=== PATIENT | male | born 1950 | race Caucasian/White ===

== ENCOUNTER → 2018-08-22 | Emergency (ER) | payer OTHER ==
[~2018-08-22] MED LIST: ASPIRIN 81 MG CHEWABLE TABLETS ONE; ASPIRIN 81 MG CHEWABLE TABLETS PO ONE; ASPIRIN COATED 81 MG TABLET.EC ONE; ASPIRIN COATED 81 MG TABLET.EC PO SCH; CARVEDILOL 12.5 MG TABLET (FP) ONE; CARVEDILOL 12.5 MG TABLET (FP) PO ONE; CLOPIDOGREL BISULFATE 75 MG TABLET (FP) ONE; CLOPIDOGREL BISULFATE 75 MG TABLET (FP) PO ONE; RAMIPRIL 5 MG CAPSULE (FP) ONE; RAMIPRIL 5 MG CAPSULE (FP) PO ONE
--- NOTE | 2018-08-22 18:35 | PDOC ---
Rapid Medical Evaluation Time Seen by Provider: 08/22/18 18:27 Medical Evaluation: Allergies Allergy/AdvReac Type Severity Reaction Status Date / Time No Known Allergies Allergy Verified 12/03/15 05:09 08/22/18 18:27 Psychiatrist: Dr. Caldwell [phone]; Yogi Cline Spoke with Dr. Caldwell, pt psychiatrist. Has been missing appointments for 4 months, and drinking. Has rx for Xanax 1mg. took approximately 45 pills with at least 5-8 beers the last two days. Also took oxycodone. Is concerned that he may have withdrawal symptoms. Admitted suicidal thoughts, no clear plan, but did take a lot of pills. Possible suicide attempt. States he may be pain seeking. Pt reports family issues. Exam: depressed affect, poor eye contact Orders: Labs, Iv Pt to proceed to ED for further evaluation Discharge Disposition - Diagnosis Suicidal thoughts, Overdose - Referrals - Patient Instructions - Post Discharge Activity
[2018-08-22 18:37] VITALS: BMI 27.3
[2018-08-22 19:11] LABS: BASO % 0.4 % (0-2.0); EOS % 3.7 % (0-4.5); HEMATOCRIT 46.7 % (35.4-49); HEMOGLOBIN 15.8 GM/dL (11.7-16.9); LYMPH % 21.3 % (8-40); MCH 31.4 pg (25.7-33.7); MCHC 33.8 g/dl (32.0-35.9); MEAN PLT VOLUME 7.6 fl (7.5-11.1); MONO % 10.7 % (3.8-10.2); NEUT % 63.9 % (42.8-82.8); PLATELET COUNT 268 K/MM3 (134-434); RBC 5.02 M/mm3 (4.00-5.60); RDW 13.4 % (11.9-15.9); WHITE BLOOD COUNT 6.6 K/mm3 (4.0-10.0)
[2018-08-22 19:50] LABS: ALBUMIN 3.8 g/dl (3.4-5.0); ALK PHOS 73 U/L (45-117); ANION GAP 6 MMOL/L (8-16); BILIRUBIN,TOTAL 0.5 mg/dL (0.2-1); BLOOD UREA NITROGEN 9 mg/dL (7-18); CALCIUM 9.9 mg/dL (8.5-10.1); CHLORIDE 109 mmol/L (98-107); CO2 22 mmol/L (21-32); CREATININE 0.6 mg/dL (0.55-1.3); GLUCOSE,RANDOM 91 mg/dL (74-106); SGPT/ALT 23 U/L (13-61); SODIUM 137 mmol/L (136-145); TOT PROT 7.3 g/dl (6.4-8.2)
[2018-08-22 19:51] LABS: POTASSIUM 4.2 mmol/L (3.5-5.1); SGOT/AST 17 U/L (15-37)
--- NOTE | 2018-08-22 20:34 | PDOC ---
History of Present Illness - General Chief Complaint: Overdose Stated Complaint: SUICIDAL Time Seen by Provider: 08/22/18 18:27 - History of Present Illness Initial Comments: 08/22/18 21:22 67-year-old male with past medical history significant for MD, hepatitis C, hypertension, cardiac stents presents with daughter to the emergency Department after allegedly injecting 45 pills of xanax 1mg yesterday and 6 of those today. Patient stable sitting in bed comfortably. 08/22/18 22:15 08/22/18 22:18 Patient admits to suicidal ideation. Past History - Past Medical History Allergies/Adverse Reactions: Allergies Allergy/AdvReac Type Severity Reaction Status Date / Time No Known Allergies Allergy Verified 08/22/18 18:30 Home Medications: Ambulatory Orders Alprazolam [Xanax -] 0.5 mg PO DAILY 07/02/12 Aspirin [ASA -] 81 mg PO DAILY 07/02/12 Carvedilol [Coreg] 12.5 mg PO BID 07/02/12 Clopidogrel Bisulfate [Plavix -] 75 mg PO DAILY 07/02/12 Ramipril 5 mg PO DAILY 07/02/12 Amoxicillin - [Amoxicillin 500mg Capsule -] 500 mg PO TID #21 capsule 12/03/15 Oxycodone HCl/Acetaminophen [Percocet 5/325 -] 1 - 2 tab PO Q4H #20 tablet 12/03 Cardiac Disorders: Yes (MD; cardiac stents) COPD: No GI Disorders: Yes (hiatal hernia) HTN: Yes Hypercholesterolemia: Yes Liver Disease: Yes (HEPATITIS C) - Surgical History Cardiac Surgery: Yes (STENTS) Orthopedic Surgery: Yes - Immunization History Immunization Up to Date: Yes - Suicide/Smoking/Psychosocial Hx Smoking Status: No Smoking History: Never smoked Have you smoked in the past 12 months: No Number of Cigarettes Smoked Daily: 0 If you are a former smoker, when did you quit?: 1 year ago Hx Alcohol Use: Yes Drug/Substance Use Hx: No Substance Use Type: Alcohol Hx Substance Use Treatment: No Review of Systems - Review of Systems Able to Perform ROS?: Yes Is the patient limited Wolof proficient: No Constitutional: No: Symptoms Reported HEENTM: No: Symptoms Reported Respiratory: No: Symptoms reported Cardiac (ROS): No: Symptoms Reported ABD/GI: No: Symptoms Reported : No: Symptoms Reported Musculoskeletal: No: Symptoms Reported Integumentary: No: Symptoms Reported Neurological: No: Symptoms reported *Physical Exam - Vital Signs Last Vital Signs Temp Pulse Resp BP Pulse Ox 97.6 F 87 18 148/90 95 08/22/18 18:31 08/22/18 18:31 1018 18:31 08/22/18 18:31 08/22/18 18:54 - Physical Exam General Appearance: Yes: Nourished, Appropriately Dressed. No: Apparent Distress HEENT: positive: EOMI, DEMI, Normal ENT Inspection Respiratory/Chest: positive: Lungs Clear, Normal Breath Sounds. negative: Chest Tender, Respiratory Distress Cardiovascular: positive: Regular Rhythm, Regular Rate, S1, S2 Gastrointestinal/Abdominal: positive: Normal Bowel Sounds, Flat, Soft. negative : Tender Musculoskeletal: positive: Normal Inspection. negative: CVA Tenderness Neurologic: positive: Fully Oriented, Alert, Normal Mood/Affect, Normal Response , Motor Strength /5 ED Treatment Course - LABORATORY CBC & Chemistry Diagram: 08/22/18 19:00 08/22/18 19:00 - ADDITIONAL ORDERS Additional order review: Laboratory Results 08/22/18 08/22/18 19:00 19:00 Sodium 137 Potassium 4.2 Chloride 109 H Carbon Dioxide 22 Anion Gap 6 L BUN 9 Creatinine 0.6 Creat Clearance w eGFR > 60 Random Glucose 91 Calcium 9.9 Total Bilirubin 0.5 AST 17 ALT 23 Alkaline Phosphatase 73 Total Protein 7.3 Albumin 3.8 Acetaminophen < 2.0 L Alcohol, Quantitative < 3.0 08/22/18 19:00 RBC 5.02 MCV 93.0 MCHC 33.8 RDW 13.4 MPV 7.6 Neutrophils % 63.9 D Lymphocytes % 21.3 D Monocytes % 10.7 H Eosinophils % 3.7 Basophils % 0.4 Medical Decision Making - Medical Decision Making 08/22/18 22:19 Will get EKG, basic labs, toxic panel. Patient on 1:1 watch. Will consult with psychiatry. 08/23/18 01:[address] Fraire. no reply, Patient signed out to Dr. Jamison. *DC/Admit/Observation/Transfer Diagnosis at time of Disposition: Suicidal thoughts, Overdose - Referrals Referrals: Maynor Dunlap MD [Primary Care Provider] - - Patient Instructions - Post Discharge Activity
--- NOTE | 2018-08-22 22:32 | PDOC ---
Attending Attestation - Resident Resident Name: Alec Motley - HPI HPI: 08/23/18 06:48 Pt presents to the ED complaining of overdose of xanax and ETOH yesterday. FAmily called EMS today because he was very sleepy yesterday. patient's primary psychiatrist spoke with [facility] practioner and expressed concern that the patient was abusing his medications and that he has not had an appointment for 4 months. Patient reports to me that he took a medication OD in a deliberate attempt to self harm, and admits to depression and suicidal ideation. - Physicial Exam PE: 08/23/18 06:59 agree with resident exam. Patient is alert and oriented and in no distress. Lungs are clear, heart regular rate and rhythm, abdomen soft, non tender and non distended. - Medical Decision Making 08/22/18 22:31 Pt presents to the ED complaining of overdose of xanax. ALert and oriented and in no distress on exam. endorses SI. Labs are within normal limits. Will hold for psych eval in the morning. 08/23/18 07:04
--- NOTE | 2018-08-23 01:10 | PDOC ---
*Physical Exam - Vital Signs Last Vital Signs Temp Pulse Resp BP Pulse Ox 97.6 F 87 18 148/90 95 08/22/18 18:31 08/22/18 18:31 08/22/18 18:31 08/22/18 18:31 08/22/18 18:54 ED Treatment Course - LABORATORY CBC & Chemistry Diagram: 08/22/18 19:00 08/22/18 19:00 - ADDITIONAL ORDERS Additional order review: Laboratory Results 08/22/18 08/22/18 19:00 19:00 Sodium 137 Potassium 4.2 Chloride 109 H Carbon Dioxide 22 Anion Gap 6 L BUN 9 Creatinine 0.6 Creat Clearance w eGFR > 60 Random Glucose 91 Calcium 9.9 Total Bilirubin 0.5 AST 17 ALT 23 Alkaline Phosphatase 73 Total Protein 7.3 Albumin 3.8 Acetaminophen < 2.0 L Alcohol, Quantitative < 3.0 08/22/18 19:00 RBC 5.02 MCV 93.0 MCHC 33.8 RDW 13.4 MPV 7.6 Neutrophils % 63.9 D Lymphocytes % 21.3 D Monocytes % 10.7 H Eosinophils % 3.7 Basophils % 0.4 Medical Decision Making - Medical Decision Making 08/23/18 01:09 received sign out from Dr. Motley Patient on 1:1 watch. pt will be seen by psych in the AM 08/23/18 07:[address] Mars Patient on 1:1 watch. pt will be seen by psych in the AM pt ED obs *DC/Admit/Observation/Transfer Diagnosis at time of Disposition: Suicidal thoughts, Overdose - Referrals Referrals: Maynor Dunlap MD [Primary Care Provider] - - Patient Instructions - Post Discharge Activity
[2018-08-23 06:13] LABS: URINE APPEARANCE CLEAR; URINE BILIRUBIN NEGATIVE (<2.0 mg/dL); URINE COLOR YELLOW; URINE GLUCOSE (UA) NEGATIVE (NEGATIVE); URINE KETONE NEGATIVE (NEGATIVE); URINE LEUK ESTERASE NEGATIVE (NEGATIVE); URINE NITRITE NEGATIVE (NEGATIVE); URINE PROTEIN NEGATIVE (NEGATIVE); URINE UROBILINOGEN NEGATIVE mg/dL (0.2-1.0)
[2018-08-23 06:42] LABS: URINE MUCUS RARE
--- NOTE | 2018-08-23 07:05 | PDOC ---
*Physical Exam - Vital Signs Last Vital Signs Temp Pulse Resp BP Pulse Ox 98.1 F 83 18 147/98 99 08/23/18 05:50 08/23/18 05:50 08/23/18 05:50 08/23/18 05:50 08/23/18 07:21 <Luisana Sandhu - Last Filed: 08/23/18 10:41> - Vital Signs Last Vital Signs Temp Pulse Resp BP Pulse Ox 98.1 F 83 18 147/98 100 08/23/18 05:50 08/23/18 05:50 08/23/18 05:50 08/23/18 05:50 08/23/18 05:50 <Luisana Mars - Last Filed: 08/23/18 20:52> ED Treatment Course - LABORATORY CBC & Chemistry Diagram: 08/22/18 19:00 08/22/18 19:00 - ADDITIONAL ORDERS Additional order review: Laboratory Results 08/23/18 08/23/18 06:00 05:44 Urine Color Yellow Urine Appearance Clear Urine pH 5.0 Ur Specific [place] 1.013 Urine Protein Negative Urine Glucose (UA) Negative Urine Ketones Negative Urine Blood 1+ H Urine Nitrite Negative Urine Bilirubin Negative Urine Urobilinogen Negative Ur Leukocyte Esterase Negative Urine WBC (Auto) 1 Urine RBC (Auto) 1 Urine Mucus Rare Opiates Screen Negative Methadone Screen Negative Barbiturate Screen Negative Phencyclidine Screen Negative Ur Amphetamines Screen Negative MDMA (Ecstasy) Screen Negative Benzodiazepines Screen Positive A* Cocaine Screen Negative U Marijuana (THC) Screen Negative 08/22/18 19:00 RBC 5.02 MCV 93.0 MCHC 33.8 RDW 13.4 MPV 7.6 Neutrophils % 63.9 D Lymphocytes % 21.3 D Monocytes % 10.7 H Eosinophils % 3.7 Basophils % 0.4 - Medications Given in the ED: ED Medications Discontinued Medications Generic Name Dose Route Start Last Admin Trade Name Freq PRN Reason Stop Dose Admin Aspirin 81 mg 08/23/18 09:52 08/23/18 10:00 Asa - PO 08/23/18 09:53 81 mg ONCE ONE Administration Carvedilol 12.5 mg 08/23/18 09:51 08/23/18 10:00 Coreg - PO 08/23/18 09:52 12.5 mg ONCE ONE Administration Clopidogrel Bisulfate 75 mg 08/23/18 09:51 08/23/18 10:00 Plavix - PO 08/23/18 09:52 75 mg ONCE ONE Administration Oxycodone/Acetaminophen 1 combo 08/23/18 10:07 08/23/18 10:16 Percocet 5/325 - PO 08/23/18 10:08 1 combo ONCE ONE Administration Ramipril 5 mg 08/23/18 09:51 08/23/18 10:00 Altace - PO 08/23/18 09:52 5 mg ONCE ONE Administration <Luisana Sandhu - Last Filed: 08/23/18 10:41> - LABORATORY CBC & Chemistry Diagram: 08/22/18 19:00 08/22/18 19:00 - ADDITIONAL ORDERS Additional order review: Laboratory Results 08/23/18 08/22/18 08/22/18 06:00 19:00 19:00 Sodium 137 Potassium 4.2 Chloride 109 H Carbon Dioxide 22 Anion Gap 6 L BUN 9 Creatinine 0.6 Creat Clearance w eGFR > 60 Random Glucose 91 Calcium 9.9 Total Bilirubin 0.5 AST 17 ALT 23 Alkaline Phosphatase 73 Total Protein 7.3 Albumin 3.8 Urine Color Yellow Urine Appearance Clear Urine pH 5.0 Ur Specific [place] 1.013 Urine Protein Negative Urine Glucose (UA) Negative Urine Ketones Negative Urine Blood 1+ H Urine Nitrite Negative Urine Bilirubin Negative Urine Urobilinogen Negative Ur Leukocyte Esterase Negative Urine WBC (Auto) 1 Urine RBC (Auto) 1 Urine Mucus Rare Acetaminophen < 2.0 L Alcohol, Quantitative < 3.0 08/22/18 19:00 RBC 5.02 MCV 93.0 MCHC 33.8 RDW 13.4 MPV 7.6 Neutrophils % 63.9 D Lymphocytes % 21.3 D Monocytes % 10.7 H Eosinophils % 3.7 Basophils % 0.4 <Luisana Mars - Last Filed: 08/23/18 20:52> Medical Decision Making - Medical Decision Making 67yo M took 45 pills of Xanax, positive for suicidal ideation CBC, CMP benign, negative UA Pending Utox, psych consult 08/23/18 07:04 Utox positive for benzodiazepine Dr. Sparrow, psychiatrist, recommending patient admission to psychiatric facility. Patient has been 2PC'ed. Pending availability of bed. Patient signed out to Dr. Antonio 08/23/18 20:50 <Luisana Mars - Last Filed: 08/23/18 20:52> *DC/Admit/Observation/Transfer <Luisana Sandhu - Last Filed: 08/23/18 10:41> <Luisana Mars - Last Filed: 08/23/18 20:52> Diagnosis at time of Disposition: Suicidal thoughts Overdose Qualifiers: Encounter type: initial encounter Injury intent: intentional self-harm Qualified Code(s): T50.902A - Poisoning by unspecified drugs, medicaments and biological substances, intentional self-harm, initial encounter - Discharge Dispostion Disposition: TRANSFER ACUTE CARE/OTHER HOSP Condition at time of disposition: Stable - Referrals Referrals: Maynor Dunlap MD [Primary Care Provider] - - Patient Instructions - Post Discharge Activity
[2018-08-23 07:36] LABS: COCAINE, UR NEGATIVE ng/ml (CUTOFF=300); METHADONE, UR NEGATIVE ng/ml (CUTOFF=300); OPIATES, URI NEGATIVE ng/ml (CUTOFF=300); PHENCYCLIDINE,URINE NEGATIVE ng/ml (CUTOFF=25); URINE AMPHETAMINES NEGATIVE ng/ml (CUTOFF=500); URINE BARBITURATES NEGATIVE ng/ml (CUTOFF=200)
[2018-08-23 08:25] LABS: URINE BENZODIAZEPINES POSITIVE ng/ml (CUTOFF=200)
--- NOTE | 2018-08-23 09:16 | EKG ---
Test Reason : Blood Pressure : / mmHG Vent. Rate : 069 BPM Atrial Rate : 069 BPM P-R Int : 154 ms QRS Dur : 120 ms QT Int : 426 ms P-R-T Axes : 032 017 046 degrees QTc Int : 456 ms SINUS RHYTHM WITH OCCASIONAL PREMATURE VENTRICULAR COMPLEXES NON-SPECIFIC INTRA-VENTRICULAR CONDUCTION DELAY WHEN COMPARED WITH ECG OF 27-JAN-2015 11:47, PREMATURE VENTRICULAR COMPLEXES ARE NOW PRESENT CRITERIA FOR INFERIOR INFARCT ARE NO LONGER PRESENT Confirmed by LEEANNA BARBA MD ([id number]) on 08/23/2018 9:16:10 AM Referred By: Confirmed By:LEEANNA BARBA MD
--- NOTE | 2018-08-23 09:33 | CON.PSY ---
Psychiatry Consult Chief Complaint: 67 year old male with a history of Depression seen at [facility] by Javi Landers been Xanax > Patient reports feeling depressed and suicidal and took 50 xanax pills in three days. Still endorsinf suicidal [id number]. Symptoms: reports: Depressed Mood, Suicidality, Self destructive thoughts - Previous Psychiatric Treatment Outpatient: Less than 6 mos ago Inpatient: One prior admission - Previous Substance Abuse Treatment Outpatient: None Inpatient: None - Reason for Previous Treatment Reason for Previous Treatment: Major Depression, Alcohol Abuse - Allergies Allergies: Allergies Allergy/AdvReac Type Severity Reaction Status Date / Time No Known Allergies Allergy Verified 08/22/18 18:30 - Current Living Status Usual Living Arrangement: With Spouse - Current Mental Status Evaluation Appearance: Disheveled Attitude: Cooperative - Affect Affect: Constrictive Appropriateness: Appropriate to Content - Mood Mood: Depressed - Speech/Language Expressive: Coherent - Psychomotor Activity Psychomotor Activity: Slowed - Thought Process Thought Process: Circumstantial - Thought Content Hallucinations: Absent Delusions: Absent - Self Perception Self Perception: No Impairment - Cognition Attention: Alert Orientation: Time Memory, Immediate Recall: Intact Memory, Short Term: 2/3 Memory, Remote with Promptin/3 - Concentration Serial Sevens Intact: No Simple Calculations Intact: Yes - Abstraction Proverb Interpretation: Intact Judgement: Severely Impaired - Insight Insight: Impaired - Impulse Control Impulse Control: Moderately Impaired - Suicidal Ideation Suicidal Ideation: Yes (Xanax overdose) - Homicidal Ideation Homicidal Ideation: No Assessment/Plan 21) admit to Psych In Patient unit.
--- NOTE | 2018-08-23 20:03 | PDOC ---
*Physical Exam - Vital Signs Last Vital Signs Temp Pulse Resp BP Pulse Ox 98.3 F 74 18 120/78 99 08/23/18 18:30 08/23/18 18:30 08/23/18 18:30 08/23/18 18:30 08/23/18 18:30 ED Treatment Course - LABORATORY CBC & Chemistry Diagram: 08/23/18 23:30 08/23/18 23:30 - ADDITIONAL ORDERS Additional order review: Laboratory Results 08/23/18 05:44 Benzodiazepines Screen Positive A* 08/22/18 19:00 RBC 5.02 MCV 93.0 MCHC 33.8 RDW 13.4 MPV 7.6 Neutrophils % 63.9 D Lymphocytes % 21.3 D Monocytes % 10.7 H Eosinophils % 3.7 Basophils % 0.4 - Medications Given in the ED: ED Medications Discontinued Medications Generic Name Dose Route Start Last Admin Trade Name Freq PRN Reason Stop Dose Admin Aspirin 81 mg 08/23/18 09:52 08/23/18 10:00 Asa - PO 08/23/18 09:53 81 mg ONCE ONE Administration Carvedilol 12.5 mg 08/23/18 09:51 08/23/18 10:00 Coreg - PO 08/23/18 09:52 12.5 mg ONCE ONE Administration Clopidogrel Bisulfate 75 mg 08/23/18 09:51 08/23/18 10:00 Plavix - PO 08/23/18 09:52 75 mg ONCE ONE Administration Oxycodone/Acetaminophen 1 combo 08/23/18 10:07 08/23/18 10:16 Percocet 5/325 - PO 08/23/18 10:08 1 combo ONCE ONE Administration Ramipril 5 mg 08/23/18 09:51 08/23/18 10:00 Altace - PO 08/23/18 09:52 5 mg ONCE ONE Administration Medical Decision Making - Medical Decision Making 08/23/18 20:[address] Mars pt seen by psych today tried calling pt pharmacy for med rec, pharmacy is closed Dispo: pt medically cleared and to be sent to inpatient psych 08/24/18 07:[address] Bright Dispo: pt medically cleared and to be sent to inpatient psych *DC/Admit/Observation/Transfer Diagnosis at time of Disposition: Suicidal thoughts Overdose Qualifiers: Encounter type: initial encounter Injury intent: intentional self-harm Qualified Code(s): T50.902A - Poisoning by unspecified drugs, medicaments and biological substances, intentional self-harm, initial encounter - Discharge Dispostion Disposition: TRANSFER ACUTE CARE/OTHER HOSP Condition at time of disposition: Stable Decision to Admit order Date/Time: Decision to Admit Order Category Date Time Status Decision to Admit to Hospital Routine Admission 08/23/18 05:24 Active - Referrals Referrals: Maynor Dunlap MD [Primary Care Provider] - - Patient Instructions - Post Discharge Activity
[2018-08-24 00:03] LABS: BASO % 0.7 % (0-2.0); EOS % 3.1 % (0-4.5); HEMATOCRIT 45.9 % (35.4-49); HEMOGLOBIN 15.2 GM/dL (11.7-16.9); LYMPH % 26.2 % (8-40); MCH 30.8 pg (25.7-33.7); MCHC 33.2 g/dl (32.0-35.9); MEAN CELL VOLUME 92.9 fl (80-96); MEAN PLT VOLUME 8.1 fl (7.5-11.1); MONO % 12.2 % (3.8-10.2); NEUT % 57.8 % (42.8-82.8); PLATELET COUNT 232 K/MM3 (134-434); RBC 4.94 M/mm3 (4.00-5.60); RDW 13.5 % (11.9-15.9); WHITE BLOOD COUNT 6.3 K/mm3 (4.0-10.0)
[2018-08-24 00:24] LABS: ALBUMIN 3.7 g/dl (3.4-5.0); ALK PHOS 69 U/L (45-117); ANION GAP 9 MMOL/L (8-16); BILIRUBIN,TOTAL 0.5 mg/dL (0.2-1); BLOOD UREA NITROGEN 18 mg/dL (7-18); CALCIUM 9.6 mg/dL (8.5-10.1); CHLORIDE 105 mmol/L (98-107); CO2 24 mmol/L (21-32); CREATININE 0.8 mg/dL (0.55-1.3); GLUCOSE,RANDOM 91 mg/dL (74-106); POTASSIUM 4.2 mmol/L (3.5-5.1); SGOT/AST 16 U/L (15-37); SGPT/ALT 23 U/L (13-61); SODIUM 139 mmol/L (136-145)
--- NOTE | 2018-08-24 18:16 | PN ---
Progress Note (short form) - Note Progress Note: Psych follow up. Patient had been here since yesterday, he has been cooperative and not dis- playing any acute self damaging behaviour. MS. alert, oriented, good eye contact, not in any alcohol or drug withdrwal state. Patient denies any sucidal thoughts. wants to go home and follow up with his pvt MD. CDr. caldwell at [facility] on Sunday. Cognition Intact. No evidence of any Psychosis. Plan> !) DIscharge from ER to go home with Family. 2) follow up at [facility] with Dr. Caldwell 9on [id number].
[2018-08-24 18:27] VITALS: BP 138/82; PULSE 74; TEMP 98.3
== END | disposition home or self-care (01) ==
LOC: JER 18:24
DX: T42.4X2A Poisoning by benzodiazepines, intentional self-harm, initial encounter (principal); Y92.018 Other place in single-family (private) house as the place of occurrence of the external cause; I25.10 Atherosclerotic heart disease of native coronary artery without angina pectoris; I10 Essential (primary) hypertension; Z95.5 Presence of coronary angioplasty implant and graft; I25.2 Old myocardial infarction; E78.00 Pure hypercholesterolemia, unspecified; B18.2 Chronic viral hepatitis C; Z79.82 Long term (current) use of aspirin
CPT/HCPCS: 36415; 80053; 80307; 81003; 81015; 85025; 93005; 93010; 99285-25; G0480

== ENCOUNTER 2019-06-05 16:46 | Inpatient (IN) | payer OTHER ==
[2019-06-05 17:32] VITALS: BMI 24.3
--- NOTE | 2019-06-05 18:57 | HP ---
COWS - Scale Resting Pulse: 0= VA 80 or Below Sweatin= Chills/Flushing Restless Observation: 1= Difficult to Sit Still Pupil Size: 1= Pupils >than Normal Bone or Joint Aches: 1= Mild Discomfort Runny Nose/ Eye Tearin= Runny Nose/Eyes GI Upset > 30mins: 1= Stomach Cramp Tremor Observation: 2= Slight Tremor Visible Yawning Observation: 1= 1-2x During Session Anxiety or Irritability: 2=Irritable/Anxious Goose Flesh Skin: 3=Piloerection COWS Score: 15 CIWA Score Nausea/Vomitin-Mild Nausea/No Vomiting Muscle Tremors: 2 Anxiety: 2 Agitation: 1-Slight > Activity Paroxysmal Sweats: 1-Minimal Palms Moist Orientation: 0-Oriented Tacttile Disturbances: 1-Very Mild Itch/Numbness Auditory Disturbances: 2-Mild Harshness/Frighten Visual Disturbances: 1-Very Mild Sensitivity Headache: 1-Very Mild CIWA-Ar Total Score: 12 - Admission Criteria OASAS Guidelines: Admission for Medically Managed Detox: Requires at least one of the followin. CIWA greater than 12 2. Seizures within the past 24 hours 3. Delirium tremens within the past 24 hours 4. Hallucinations within the past 24 hours 5. Acute intervention needed for co occurring medical disorder 6. Acute intervention needed for co occurring psychiatric disorder 7. Severe withdrawal that cannot be handled at a lower level of care (continued vomiting, continued diarrhea, abnormal vital signs) requiring intravenous medication and/or fluids 8. Admission ROS [facility] Chief Complaint: WITHDRAWAL SYMPTOMS Allergies/Adverse Reactions: Allergies Allergy/AdvReac Type Severity Reaction Status Date / Time No Known Allergies Allergy Verified 06/05/19 17:03 History of Present Illness: 68 Y.O. MAN WITH AN EXTENSIVE HISTORY OF OPIATE AND ALCOHOL DEPENDENCE IS HERE SEEKING DETOX SERVICES. HE REPORTS HE LAST COMPLETED DETOX 50 YEARS AGO. HE IS PRESCRIBED OXYCODONE BY HIS PAIN MANAGEMENT PHYSICIAN (DR. SAMUEL MOLINA). HE LAST RECEIVED #90 OF THE 20MG TABLETS OF OXYCODONE ON 05/19/19. Exam Limitations: No Limitations - Ebola screening Have you traveled outside of the country in the last 21 days: No (N) Have you had contact with anyone from an Ebola affected area: No Do you have a fever: No - Review of Systems Constitutional: Loss of Appetite, Night Sweats, Unintentional Wgt. Loss EENT: reports: Tearing, Nose Congestion Respiratory: reports: No Symptoms reported Cardiac: reports: No Symptoms Reported GI: reports: Nausea : reports: No Symptoms Reported Musculoskeletal: reports: Muscle Pain Integumentary: reports: No Symptoms Reported Neuro: reports: No Symptoms reported, Tremors Endocrine: reports: No Symptoms Reported Hematology: reports: No Symptoms Reported Psychiatric: reports: Orientated x3 Other Systems: Reviewed and Negative Patient History - Patient Medical History Hx Anemia: No Hx Asthma: No Hx Chronic Obstructive Pulmonary Disease (COPD): No Hx Cancer: No Hx Cardiac Disorders: Yes (8 WEEKS AGO DE; cardiac stents) Hx Congestive Heart Failure: No Hx Hypertension: Yes Hx Hypercholesterolemia: Yes Hx Pacemaker: No HX Cerebrovascular Accident: No Hx Seizures: No Hx Dementia: No Hx Diabetes: No Hx Gastrointestinal Disorders: Yes (hiatal hernia) Hx Liver Disease: Yes (HEPATITIS C (TREATED)) Hx Genitourinary Disorders: No Hx Sexually Transmitted Disorders: No Hx Renal Disease (ESRD): No Hx Thyroid Disease: No Hx Human Immunodeficiency Virus (HIV): No (NEGATIVE ) Hx Hepatitis C: Yes Hx Depression: No Hx Suicide Attempt: No Hx Bipolar Disorder: No Hx Schizophrenia: No Other Medical History: Wearable cardioverter defibrillators - Patient Surgical History Past Surgical History: Yes Hx Cardiac Surgery: Yes (STENTS) Hx Orthopedic Surgery: Yes (ROTATOR CUFF ) Anesthesia Reaction: No - PPD History Previous Implant?: Yes Documented Results: Negative w/o proof PPD to be Administered?: Yes - Reproductive History Patient is a Female of Child Bearing Age (11 -55 yrs old): No - Smoking Cessation Smoking history: Former smoker Have you smoked in the past 12 months: No Aproximately how many cigarettes per day: 0 If you are a former smoker, when did you quit?: 9 YEARS AGO Hx Chewing Tobacco Use: No Initiated information on smoking cessation: No 'Breaking Loose' booklet given: 06/05/19 - Substance & Tx. History Hx Alcohol Use: Yes Hx Substance Use: Yes Substance Use Type: Alcohol, Heroin Hx Substance Use Treatment: Yes (DETOX 50 YEARS AGO FOR HEROIN DEPENDENCE) - Substances abused Alcohol Substance route: Oral Frequency: 3-6 times per week Amount used: 3-4 beers Age of first use: 18 Date of last use: 06/05/19 Heroin Substance route: Inhalation Frequency: Daily Amount used: 6-7 bags per day Age of first use: 17 Date of last use: 06/03/19 Other Other (specify): oxycodone Substance route: Oral Frequency: Daily Amount used: 60-70mg/day Age of first use: 63 Date of last use: 06/05/19 Family Disease History - Family Disease History Family Disease History: Heart Disease: Father (), Mother ( ), [place] : Mother Admission Physical Exam [facility] - Vital Signs Vital Signs: Vital Signs - 24 hr 06/05/19 06/05/19 17:16 17:44 Temperature 98.2 F 98.2 F Pulse Rate 68 68 Respiratory 18 18 Rate Blood Pressure 107/66 107/66 - Physical General Appearance: Yes: Anxious HEENTM: Yes: Normal ENT Inspection, Normocephalic, Normal Voice Respiratory: Yes: Lungs Clear, Normal Breath Sounds Neck: Yes: Within Normal Limits Breast: Yes: Breast Exam Deferred Cardiology: Yes: Regular Rhythm, Regular Rate Abdominal: Yes: Normal Bowel Sounds, Non Tender, Flat Genitourinary: Yes: Other (NO COMPLAINTS REPORTED) Back: Yes: Normal Inspection Musculoskeletal: Yes: full range of Motion, Gait Steady, Pelvis Stable Extremities: Yes: Normal Capillary Refill, Normal Inspection, Normal Range of Motion, Non-Tender Neurological: Yes: Alert, Normal Mood/Affect, Normal Response Integumentary: Yes: Normal Color, Dry, Warm Lymphatic: Yes: Within Normal Limits - Diagnostic (1) Opioid dependence, uncomplicated Current Visit: Yes Status: Chronic (2) Alcohol dependence with uncomplicated intoxication Current Visit: Yes Status: Chronic (3) Hypertension Current Visit: Yes Status: Chronic (4) Hypercholesteremia Current Visit: Yes Status: Chronic (5) Hepatitis C Current Visit: Yes Status: Resolved Comment: REPORTS HE COMPLETED TREATMENT (6) History of acute myocardial infarction Current Visit: Yes Status: Chronic (7) Uses wearable garment containing external defibrillator with attached monitor Current Visit: Yes Status: Acute Cleared for Admission [facility] - Detox or Rehab [facility] Level of Care: Medically Managed Detox Regimen/Protocol: Methadone/Librium Breathalyzer - Breathalyzer Breathalyzer: 0.053 Urine Drug Screen - Test Device Lot number: [id number] Expiration date: 03/04/21 - Control Is test valid?: Yes - Results Drug screen NEGATIVE: No Urine drug screen results: OXY-Oxycodone, MTD-Methadone Inpatient Rehab Admission - Rehab Decision to Admit Inpatient rehab admission?: No
[2019-06-05] MEDS ORDERED: MAGNESIUM HYDROX 2400MG/30ML ORAL SUSPENSION 30 ML CUP PO PRN (19:06)
[2019-06-05] MEDS ORDERED: chlordiazePOXIDE HCL 10 MG CAPSULE PO PRN (19:06)
[2019-06-05] MEDS ORDERED: BISMUTH SUBSALICYLATE 524 MG/30 ML UD PO PRN (19:06)
[2019-06-05] MEDS ORDERED: MAGNESIUM CITRATE 300 ML BOTTLE PO PRN (19:06)
[2019-06-05] MEDS ORDERED: MAG HYDROX/AL HYDROX/SIMETH 30 ML UNIT-DOSE CUP PO PRN (19:06)
[2019-06-05] MEDS ORDERED: hydrOXYzine PAMOATE 25 MG CAPSULE (FP) PO PRN (19:06)
[2019-06-05] MEDS ORDERED: ONDANSETRON *ODT* 4 MG TABLET SL PRN (19:06)
[2019-06-05] MEDS ORDERED: ACETAMINOPHEN 325 MG TABLET (FP) PO PRN (19:06)
[2019-06-05] MEDS ORDERED: MENTHOL/PHENOL 1 EACH UD MM PRN (19:06)
[2019-06-05] MEDS ORDERED: METHADONE HCL 10 MG TABLET (FOR DETOX USE ONLY) PO ONE (19:09)
[2019-06-05] MEDS ORDERED: NALOXONE HCL 0.4 MG/ML VIAL IM PRN (19:09)
[2019-06-05] MEDS ORDERED: cloNIDine HCL 0.1 MG TABLET PO PRN (19:09)
[2019-06-05] MEDS ORDERED: TUBERCULIN PPD 5 TU/0.1ML VIAL ID ONE (21:40)
[2019-06-05] MEDS: CARVEDILOL 12.5 MG TABLET (FP) PO SCH (21:47)
[2019-06-05] MEDS: ATORVASTATIN CA 40 MG TABLET (FP) PO SCH (21:47)
[2019-06-05] MEDS: THIAMINE HCL 100 MG TABLET (FP) PO SCH (21:49)
[2019-06-05] MEDS: chlordiazePOXIDE HCL 25 MG CAPSULE PO SCH (21:49)
[2019-06-06] MEDS: chlordiazePOXIDE HCL 25 MG CAPSULE PO SCH ×3 (05:59→22:13)
[2019-06-06] MEDS ORDERED: METHADONE HCL 10 MG TABLET (FOR DETOX USE ONLY) ONE (09:16)
[2019-06-06] MEDS ORDERED: METHADONE HCL 5 MG TABLET (FOR DETOX USE ONLY) ONE (09:18)
[2019-06-06] MEDS ORDERED: NICOTINE POLACRILEX 2 MG GUM BUC PRN (09:21)
[2019-06-06 09:53] LABS: HEMATOCRIT 40.3 % (35.4-49); HEMOGLOBIN 13.9 GM/dL (11.7-16.9); MCHC 34.5 g/dl (32.0-35.9); MEAN CELL VOLUME 92.9 fl (80-96); MEAN PLT VOLUME 8.4 fl (7.5-11.1); RBC 4.34 M/mm3 (4.00-5.60); RDW 13.5 % (11.9-15.9); WHITE BLOOD COUNT 6.2 K/mm3 (4.0-10.0)
[2019-06-06] MEDS ORDERED: SACUBITRIL/VALSARTAN 24 MG-26 MG TABLET PO SCH (10:00)
[2019-06-06] MEDS ORDERED: METHADONE (DETOX) 20 MG, METHADONE (DETOX) 5 MG PO ONE (10:00)
[2019-06-06 10:11] LABS: ALBUMIN 3.6 g/dl (3.4-5.0); BILIRUBIN,TOTAL 0.6 mg/dL (0.2-1); BLOOD UREA NITROGEN 9.6 mg/dL (7-18); CALCIUM 9.8 mg/dL (8.5-10.1); CREATININE 0.7 mg/dL (0.55-1.3); POTASSIUM 4.6 mmol/L (3.5-5.1); TOT PROT 6.6 g/dl (6.4-8.2)
[2019-06-06 10:13] LABS: PLATELET COUNT 252 K/MM3 (134-434)
[2019-06-06] MEDS: CARVEDILOL 12.5 MG TABLET (FP) PO SCH ×2 (10:17→22:13)
[2019-06-06] MEDS: PRENATAL VITAMINS W/ FOLIC ACID TABLET (FP) PO SCH (10:17)
[2019-06-06] MEDS: ASPIRIN 81 MG CHEWABLE TABLETS PO SCH (10:17)
[2019-06-06] MEDS: IBUPROFEN 400 MG TABLET (FP) PO PRN ×2 (10:19→18:14)
[2019-06-06] MEDS: NICOTINE 14 MG/24 HOURS TOPICAL PATCH TD SCH (10:20)
--- NOTE | 2019-06-06 13:57 | EKG ---
Test Reason : Blood Pressure : / mmHG Vent. Rate : 058 BPM Atrial Rate : 058 BPM P-R Int : 152 ms QRS Dur : 112 ms QT Int : 460 ms P-R-T Axes : 035 014 063 degrees QTc Int : 451 ms SINUS BRADYCARDIA POSSIBLE INFERIOR INFARCT , AGE UNDETERMINED ABNORMAL ECG WHEN COMPARED WITH ECG OF 23-AUG-2018 07:58, PREMATURE VENTRICULAR COMPLEXES ARE NO LONGER PRESENT BORDERLINE CRITERIA FOR INFERIOR INFARCT ARE NOW PRESENT Confirmed by LEEANNA BARBA MD ([id number]) on 06/06/2019 1:57:08 PM Referred By: Martha Jasso Confirmed By:LEEANNA BARBA MD
--- NOTE | 2019-06-06 16:44 | PN ---
[facility] CIWA - CIWA Score Nausea/Vomitin-No Nausea/No Vomiting Muscle Tremors: 3 Anxiety: 2 Agitation: 2 Paroxysmal Sweats: No Perspiration Orientation: 0-Oriented Tacttile Disturbances: 2-Mild Itch/Numbness/Burn Auditory Disturbances: 0-None Visual Disturbances: 2-Mild Sensitivity Headache: 0-None Present CIWA-Ar Total Score: 11 S COWS - Scale Resting Pulse: 0= [place] 80 or Below Sweatin= Chills/Flushing Restless Observation: 1= Difficult to Sit Still Pupil Size: 0= Normal to Room Light Bone or Joint Aches: 4=Acute Joint/Muscle Pain Runny Nose/ Eye Tearin= None GI Upset > 30mins: 0= None Tremor Observation of Outstretched Hands: 2= Slight Tremor Visible Yawning Observation: 1= 1-2x During Session Anxiety or Irritability: 2=Irritable/Anxious Goose Flesh Skin: 3=Piloerection COWS Score: 14 S Progress Note (SOAP) Subjective: Chills, Tremors, Body Aches, Anxious. Objective: PATIENT A & O X 3, OBSERVED AMBULATING ON UNIT UNASSISTED. IN NO ACUTE DISTRESS. 06/06/19 16:39 Vital Signs Temperature 98.5 F 06/06/19 13:03 Pulse Rate 55 L 06/06/19 13:03 Respiratory Rate 18 06/06/19 13:03 Blood Pressure 99/56 L 06/06/19 13:03 O2 Sat by Pulse Oximetry (%) Laboratory Tests 06/06/19 06/06/19 06/06/19 07:00 07:00 07:00 WBC 6.2 RBC 4.34 Hgb 13.9 Hct 40.3 MCV 92.9 MCH 32.0 MCHC 34.5 RDW 13.5 Plt Count 252 MPV 8.4 Sodium 136 Potassium 4.6 Chloride 101 Carbon Dioxide 30 Anion Gap 6 L BUN 9.6 Creatinine 0.7 Est GFR (CKD-EPI)AfAm 112.38 Est GFR (CKD-EPI)NonAf 96.97 Random Glucose 111 H Calcium 9.8 Total Bilirubin 0.6 AST 22 ALT 25 Alkaline Phosphatase 78 Total Protein 6.6 Albumin 3.6 RPR Titer Nonreactive LABS NOTED. Assessment: 06/06/19 16:39 WITHDRAWAL SYMPTOMS. Plan: CONTINUE DETOX. PATIENT REPORTS PAIN AND SWELLING IN RIGHT KNEE THAT STARTED APPROX. 2 DAYS AGO. PATIENT DENIES ANY HISTORY OF SIMILAR OCCURRENCE IN PAST AND HE DENIES ANY HISTORY OF TRAUMATIC INJURY. 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 PATIENT POINTS PRIMARILY TO AREA ON RIGHT KNEE JUST SUPERIOR TO [place]LLA AREA PRIMARILY AFFECTED BY PAIN. RIGHT KNEE APPEARS SLIGHTLY SWOLLEN IN COMPARISON TO LEFT KNEE. NO ERYTHEMA OR WOUNDS NOTED IN RIGHT KNEE AREA. PATIENT EDUCATED ABOUT R.I.C.E. PROTOCOL AND TO TO FOLLOW-UP WITH PERSONAL FINANCIAL COUNSELOR AFTER DISCHARGE FROM DETOX FOR FURTHER MEDICAL ASSESSMENT OF THIS CONDITION IF IT PERSISTS AFTER DISCHARGE FROM DETOX UNIT. PATIENT VERBALIZED UNDERSTANDING OF RECOMMENDATION.
[2019-06-06] MEDS: METHOCARBAMOL 500 MG TABLET PO PRN (18:14)
[2019-06-06] MEDS: ATORVASTATIN CA 40 MG TABLET (FP) PO SCH (22:13)
[2019-06-06] MEDS: SACUBITRIL/VALSARTAN 49 MG-51 MG TABLET PO SCH (22:14)
[2019-06-06] MEDS: THIAMINE HCL 100 MG TABLET (FP) PO SCH (22:14)
[2019-06-06] MEDS: ACETAMINOPHEN 325 MG TABLET (FP) PO PRN (22:16)
[2019-06-06] MEDS: MELATONIN 5 MG TABLETS PO PRN (22:16)
[2019-06-07] MEDS: IBUPROFEN 400 MG TABLET (FP) PO PRN ×3 (01:47→18:47)
[2019-06-07] MEDS: METHOCARBAMOL 500 MG TABLET PO PRN ×3 (01:47→18:48)
[2019-06-07] MEDS: chlordiazePOXIDE 5 MG CAPSULE PO SCH ×3 (05:06→22:08)
[2019-06-07] MEDS ORDERED: METHADONE HCL 10 MG TABLET (FOR DETOX USE ONLY) PO ONE (10:00)
[2019-06-07] MEDS: CARVEDILOL 12.5 MG TABLET (FP) PO SCH ×2 (10:17→22:08)
[2019-06-07] MEDS: PRENATAL VITAMINS W/ FOLIC ACID TABLET (FP) PO SCH (10:17)
[2019-06-07] MEDS: ASPIRIN 81 MG CHEWABLE TABLETS PO SCH (10:17)
[2019-06-07] MEDS: NICOTINE 14 MG/24 HOURS TOPICAL PATCH TD SCH (10:18)
[2019-06-07] MEDS: SACUBITRIL/VALSARTAN 49 MG-51 MG TABLET PO SCH ×2 (10:18→22:09)
--- NOTE | 2019-06-07 12:35 | PN ---
[facility] CIWA - CIWA Score Nausea/Vomitin-No Nausea/No Vomiting Muscle Tremors: 3 Anxiety: 2 Agitation: 2 Paroxysmal Sweats: No Perspiration Orientation: 0-Oriented Tacttile Disturbances: 1-Very Mild Itch/Numbness Auditory Disturbances: 0-None Visual Disturbances: 2-Mild Sensitivity Headache: 0-None Present CIWA-Ar Total Score: 10 S COWS - Scale Resting Pulse: 0= [place] 80 or Below Sweatin= No chills or Flushing Restless Observation: 1= Difficult to Sit Still Pupil Size: 0= Normal to Room Light Bone or Joint Aches: 2= Severe Diffuse Aches Runny Nose/ Eye Tearin= None GI Upset > 30mins: 0= None Tremor Observation of Outstretched Hands: 2= Slight Tremor Visible Yawning Observation: 1= 1-2x During Session Anxiety or Irritability: 2=Irritable/Anxious Goose Flesh Skin: 3=Piloerection COWS Score: 11 S Progress Note (SOAP) Subjective: Body Aches, Anxious, Tremors. Patient reports That Current withdrawal Detox Symptoms in General Are beginning to Subside in Severity. Patient Also Reports That Pain in Right Knee has subsided somewhat since Yesterday. Objective: PATIENT A & O X 3, OBSERVED AMBULATING ON UNIT UNASSISTED. IN NO ACUTE DISTRESS. 06/07/19 12:36 Vital Signs Temperature 97.3 F L 06/07/19 09:25 Pulse Rate 59 L 06/07/19 09:25 Respiratory Rate 18 06/07/19 09:25 Blood Pressure 95/56 L 06/07/19 09:25 O2 Sat by Pulse Oximetry (%) Laboratory Tests 06/06/19 06/06/19 06/06/19 07:00 07:00 07:00 WBC 6.2 RBC 4.34 Hgb 13.9 Hct 40.3 MCV 92.9 MCH 32.0 MCHC 34.5 RDW 13.5 Plt Count 252 MPV 8.4 Sodium 136 Potassium 4.6 Chloride 101 Carbon Dioxide 30 Anion Gap 6 L BUN 9.6 Creatinine 0.7 Est GFR (CKD-EPI)AfAm 112.38 Est GFR (CKD-EPI)NonAf 96.97 Random Glucose 111 H Calcium 9.8 Total Bilirubin 0.6 AST 22 ALT 25 Alkaline Phosphatase 78 Total Protein 6.6 Albumin 3.6 RPR Titer Nonreactive LABS NOTED. Assessment: 06/07/19 12:37 WITHDRAWAL SYMPTOMS. Plan: CONTINUE DETOX.
[2019-06-07] MEDS: THIAMINE HCL 100 MG TABLET (FP) PO SCH (22:08)
[2019-06-07] MEDS: ATORVASTATIN CA 40 MG TABLET (FP) PO SCH (22:08)
[2019-06-07] MEDS: MELATONIN 5 MG TABLETS PO PRN (22:11)
[2019-06-08] MEDS ORDERED: chlordiazePOXIDE HCL 10 MG CAPSULE PO PRN
[2019-06-08] MEDS: IBUPROFEN 400 MG TABLET (FP) PO PRN ×2 (04:48→12:36)
[2019-06-08] MEDS: chlordiazePOXIDE HCL 10 MG CAPSULE PO SCH ×3 (04:49→22:07)
[2019-06-08] MEDS: METHOCARBAMOL 500 MG TABLET PO PRN ×3 (04:49→20:21)
--- NOTE | 2019-06-08 09:54 | PN ---
[facility] CIWA - CIWA Score Nausea/Vomitin-No Nausea/No Vomiting Muscle Tremors: 3 Anxiety: 2 Agitation: 3 Paroxysmal Sweats: 1-Minimal Palms Moist Orientation: 0-Oriented Tacttile Disturbances: 0-None Auditory Disturbances: 0-None Visual Disturbances: 0-None Headache: 0-None Present CIWA-Ar Total Score: 9 BHS COWS - Scale Resting Pulse: 0= [place] 80 or Below Sweatin= Chills/Flushing Restless Observation: 0= Sits Still Pupil Size: 0= Normal to Room Light Bone or Joint Aches: 1= Mild Discomfort Runny Nose/ Eye Tearin= Nasal Congestion GI Upset > 30mins: 1= Stomach Cramp Tremor Observation of Outstretched Hands: 2= Slight Tremor Visible Yawning Observation: 1= 1-2x During Session Anxiety or Irritability: 2=Irritable/Anxious Goose Flesh Skin: 0=Smooth Skin COWS Score: 9 [facility] Progress Note (SOAP) Subjective: 68 years old male admitted on 06/05/19 for alcohol and opiate withdrawal sx management doing well with methadone and librium detox regimen report right knee 2/10 pain x 5 days without trauma denies injury right knee > left knee right inner knee mild skin redness no fluid palpated skin intact with limited flexion and extension x ray of the right knee cane for support continue icing and resting report had heart attach 7 weeks ago uring external defibrillator 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 Objective: 06/08/19 09:58 Vital Signs Temperature 97.5 F L 06/08/19 09:20 Pulse Rate 70 06/08/19 09:20 Respiratory Rate 18 06/08/19 09:20 Blood Pressure 110/62 06/08/19 09:20 O2 Sat by Pulse Oximetry (%) Laboratory Last Values WBC 6.2 K/mm3 (4.0-10.0) 06/06/19 07:00 RBC 4.34 M/mm3 (4.00-5.60) 06/06/19 07:00 Hgb 13.9 GM/dL (11.7-16.9) 06/06/19 07:00 Hct 40.3 % (35.4-49) 06/06/19 07:00 MCV 92.9 fl (80-96) 06/06/19 07:00 MCH 32.0 pg (25.7-33.7) 06/06/19 07:00 MCHC 34.5 g/dl (32.0-35.9) 06/06/19 07:00 RDW 13.5 % (11.9-15.9) 06/06/19 07:00 Plt Count 252 K/MM3 (134-434) 06/06/19 07:00 MPV 8.4 fl (7.5-11.1) 06/06/19 07:00 Sodium 136 mmol/L (136-145) 06/06/19 07:00 Potassium 4.6 mmol/L (3.5-5.1) 06/06/19 07:00 Chloride 101 mmol/L (98-107) 06/06/19 07:00 Carbon Dioxide 30 mmol/L (21-32) 06/06/19 07:00 Anion Gap 6 MMOL/L (8-16) L 06/06/19 07:00 BUN 9.6 mg/dL (7-18) 06/06/19 07:00 Creatinine 0.7 mg/dL (0.55-1.3) 06/06/19 07:00 Est GFR (CKD-EPI)AfAm 112.38 06/06/19 07:00 Est GFR (CKD-EPI)NonAf 96.97 06/06/19 07:00 Random Glucose 111 mg/dL (74-106) H 06/06/19 07:00 Calcium 9.8 mg/dL (8.5-10.1) 06/06/19 07:00 Total Bilirubin 0.6 mg/dL (0.2-1) 06/06/19 07:00 AST 22 U/L (15-37) 06/06/19 07:00 ALT 25 U/L (13-61) 06/06/19 07:00 Alkaline Phosphatase 78 U/L (45-117) 06/06/19 07:00 Total Protein 6.6 g/dl (6.4-8.2) 06/06/19 07:00 Albumin 3.6 g/dl (3.4-5.0) 06/06/19 07:00 RPR Titer Nonreactive (NONREACTIVE) 06/06/19 07:00 lab noted Assessment: 06/08/19 09:58 alcohol and opiate withdrawal sx Plan: continue alcohol and opiate detox
[2019-06-08] MEDS ORDERED: METHADONE (DETOX) 10 MG, METHADONE (DETOX) 5 MG PO ONE (10:00)
[2019-06-08] MEDS: CARVEDILOL 12.5 MG TABLET (FP) PO SCH ×2 (10:03→22:07)
[2019-06-08] MEDS: ASPIRIN 81 MG CHEWABLE TABLETS PO SCH (10:03)
[2019-06-08] MEDS: PRENATAL VITAMINS W/ FOLIC ACID TABLET (FP) PO SCH (10:03)
[2019-06-08] MEDS ORDERED: METHADONE HCL 10 MG TABLET (FOR DETOX USE ONLY) ONE (10:04)
[2019-06-08] MEDS ORDERED: METHADONE HCL 5 MG TABLET (FOR DETOX USE ONLY) ONE (10:04)
[2019-06-08] MEDS: SACUBITRIL/VALSARTAN 49 MG-51 MG TABLET PO SCH ×2 (10:05→22:07)
[2019-06-08] MEDS: NICOTINE 14 MG/24 HOURS TOPICAL PATCH TD SCH (10:06)
[2019-06-08] MEDS: ACETAMINOPHEN 325 MG TABLET (FP) PO PRN ×2 (10:07→20:21)
[2019-06-08] MEDS: ATORVASTATIN CA 40 MG TABLET (FP) PO SCH (22:07)
[2019-06-08] MEDS: THIAMINE HCL 100 MG TABLET (FP) PO SCH (22:07)
[2019-06-08] MEDS: MELATONIN 5 MG TABLETS PO PRN (22:08)
[2019-06-09] MEDS: IBUPROFEN 400 MG TABLET (FP) PO PRN ×3 (02:47→19:09)
[2019-06-09] MEDS ORDERED: chlordiazePOXIDE HCL 10 MG CAPSULE PO ONE (05:00)
[2019-06-09] MEDS: METHOCARBAMOL 500 MG TABLET PO PRN ×3 (05:42→19:09)
[2019-06-09] MEDS: ACETAMINOPHEN 325 MG TABLET (FP) PO PRN ×2 (05:42→16:55)
--- NOTE | 2019-06-09 09:44 | PN ---
[facility] CIWA - CIWA Score Nausea/Vomitin-No Nausea/No Vomiting Muscle Tremors: 2 Anxiety: 2 Agitation: 2 Paroxysmal Sweats: No Perspiration Orientation: 0-Oriented Tacttile Disturbances: 0-None Auditory Disturbances: 0-None Visual Disturbances: 0-None Headache: 0-None Present CIWA-Ar Total Score: 6 BHS COWS - Scale Resting Pulse: 0= [place] 80 or Below Sweatin= Chills/Flushing Restless Observation: 0= Sits Still Pupil Size: 0= Normal to Room Light Bone or Joint Aches: 1= Mild Discomfort Runny Nose/ Eye Tearin= Nasal Congestion GI Upset > 30mins: 1= Stomach Cramp Tremor Observation of Outstretched Hands: 1= Tremor [place], Not Seen Yawning Observation: 0= None Anxiety or Irritability: 1=Feels Anxious/Irritable Goose Flesh Skin: 0=Smooth Skin COWS Score: 6 BHS Progress Note (SOAP) Subjective: preocupied by right knee 6-9/10 pain without apparent reason ambulating from bed to bathroom ambulating on hallway to day room Objective: 06/09/19 09:41 Vital Signs Temperature 97.2 F L 06/09/19 09:05 Pulse Rate 74 06/09/19 09:05 Respiratory Rate 20 06/09/19 09:05 Blood Pressure 90/65 06/09/19 09:05 O2 Sat by Pulse Oximetry (%) Laboratory Last Values WBC 6.2 K/mm3 (4.0-10.0) 06/06/19 07:00 RBC 4.34 M/mm3 (4.00-5.60) 06/06/19 07:00 Hgb 13.9 GM/dL (11.7-16.9) 06/06/19 07:00 Hct 40.3 % (35.4-49) 06/06/19 07:00 MCV 92.9 fl (80-96) 06/06/19 07:00 MCH 32.0 pg (25.7-33.7) 06/06/19 07:00 MCHC 34.5 g/dl (32.0-35.9) 06/06/19 07:00 RDW 13.5 % (11.9-15.9) 06/06/19 07:00 Plt Count 252 K/MM3 (134-434) 06/06/19 07:00 MPV 8.4 fl (7.5-11.1) 06/06/19 07:00 Sodium 136 mmol/L (136-145) 06/06/19 07:00 Potassium 4.6 mmol/L (3.5-5.1) 06/06/19 07:00 Chloride 101 mmol/L (98-107) 06/06/19 07:00 Carbon Dioxide 30 mmol/L (21-32) 06/06/19 07:00 Anion Gap 6 MMOL/L (8-16) L 06/06/19 07:00 BUN 9.6 mg/dL (7-18) 06/06/19 07:00 Creatinine 0.7 mg/dL (0.55-1.3) 06/06/19 07:00 Est GFR (CKD-EPI)AfAm 112.38 06/06/19 07:00 Est GFR (CKD-EPI)NonAf 96.97 06/06/19 07:00 Random Glucose 111 mg/dL (74-106) H 06/06/19 07:00 Calcium 9.8 mg/dL (8.5-10.1) 06/06/19 07:00 Total Bilirubin 0.6 mg/dL (0.2-1) 06/06/19 07:00 AST 22 U/L (15-37) 06/06/19 07:00 ALT 25 U/L (13-61) 06/06/19 07:00 Alkaline Phosphatase 78 U/L (45-117) 06/06/19 07:00 Total Protein 6.6 g/dl (6.4-8.2) 06/06/19 07:00 Albumin 3.6 g/dl (3.4-5.0) 06/06/19 07:00 RPR Titer Nonreactive (NONREACTIVE) 06/06/19 07:00 lab noted patient is having x ray of the right knee today denies history of gout nor arthritis 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
[2019-06-09] MEDS ORDERED: METHADONE HCL 10 MG TABLET (FOR DETOX USE ONLY) PO ONE (10:00)
[2019-06-09] MEDS: ASPIRIN 81 MG CHEWABLE TABLETS PO SCH (10:14)
[2019-06-09] MEDS: PRENATAL VITAMINS W/ FOLIC ACID TABLET (FP) PO SCH (10:14)
[2019-06-09] MEDS: NICOTINE 14 MG/24 HOURS TOPICAL PATCH TD SCH (10:15)
[2019-06-09] MEDS: CARVEDILOL 12.5 MG TABLET (FP) PO SCH ×2 (11:33→22:32)
[2019-06-09] MEDS: SACUBITRIL/VALSARTAN 49 MG-51 MG TABLET PO SCH ×2 (11:34→22:32)
[2019-06-09] MEDS: THIAMINE HCL 100 MG TABLET (FP) PO SCH (22:32)
[2019-06-09] MEDS: ATORVASTATIN CA 40 MG TABLET (FP) PO SCH (22:32)
[2019-06-09] MEDS: MELATONIN 5 MG TABLETS PO PRN (22:32)
[2019-06-10] MEDS: ACETAMINOPHEN 325 MG TABLET (FP) PO PRN (03:19)
[2019-06-10] MEDS ORDERED: METHADONE HCL 5 MG TABLET (FOR DETOX USE ONLY) PO ONE (06:00)
[2019-06-10 06:14] VITALS: BP 93/60; PULSE 57; TEMP 98.1
[2019-06-10] MEDS: IBUPROFEN 400 MG TABLET (FP) PO PRN (06:20)
--- NOTE | 2019-06-10 14:39 | DS ---
[facility] Detox Discharge Summary Admission Date: 06/05/19 Discharge Date: 06/10/19 - History Present History: Opioid Dependence Additional Comments: 68 years old male admitted on 06/05/19 for acute opiate withdrawal sx management doing well with librium and methadone detox regimen no complication throughout the detox stay alert oriented x 3 no dizziness no shortness of breathe speech clearly steady gait aftercare [facility] Pertinent Past History: discuss medication assisted treatment program that encourage the patient bringing in medication list and lab report to aftercare follow up - Physical Exam Results Vital Signs: Vital Signs Temperature 98.1 F 06/10/19 06:13 Pulse Rate 57 L 06/10/19 06:13 Respiratory Rate 16 06/10/19 06:13 Blood Pressure 93/60 06/10/19 06:13 O2 Sat by Pulse Oximetry (%) Pertinent Admission Physical Exam Findings: opiate withdrawal sx Laboratory Last Values WBC 6.2 K/mm3 (4.0-10.0) 06/06/19 07:00 RBC 4.34 M/mm3 (4.00-5.60) 06/06/19 07:00 Hgb 13.9 GM/dL (11.7-16.9) 06/06/19 07:00 Hct 40.3 % (35.4-49) 06/06/19 07:00 MCV 92.9 fl (80-96) 06/06/19 07:00 MCH 32.0 pg (25.7-33.7) 06/06/19 07:00 MCHC 34.5 g/dl (32.0-35.9) 06/06/19 07:00 RDW 13.5 % (11.9-15.9) 06/06/19 07:00 Plt Count 252 K/MM3 (134-434) 06/06/19 07:00 MPV 8.4 fl (7.5-11.1) 06/06/19 07:00 Sodium 136 mmol/L (136-145) 06/06/19 07:00 Potassium 4.6 mmol/L (3.5-5.1) 06/06/19 07:00 Chloride 101 mmol/L (98-107) 06/06/19 07:00 Carbon Dioxide 30 mmol/L (21-32) 06/06/19 07:00 Anion Gap 6 MMOL/L (8-16) L 06/06/19 07:00 BUN 9.6 mg/dL (7-18) 06/06/19 07:00 Creatinine 0.7 mg/dL (0.55-1.3) 06/06/19 07:00 Est GFR (CKD-EPI)AfAm 112.38 06/06/19 07:00 Est GFR (CKD-EPI)NonAf 96.97 06/06/19 07:00 Random Glucose 111 mg/dL (74-106) H 06/06/19 07:00 Calcium 9.8 mg/dL (8.5-10.1) 06/06/19 07:00 Total Bilirubin 0.6 mg/dL (0.2-1) 06/06/19 07:00 AST 22 U/L (15-37) 06/06/19 07:00 ALT 25 U/L (13-61) 06/06/19 07:00 Alkaline Phosphatase 78 U/L (45-117) 06/06/19 07:00 Total Protein 6.6 g/dl (6.4-8.2) 06/06/19 07:00 Albumin 3.6 g/dl (3.4-5.0) 06/06/19 07:00 RPR Titer Nonreactive (NONREACTIVE) 06/06/19 07:00 lab noted - Treatment Hospital Course: Detox Protocol Followed, Detoxed Safely, Responded well, Discharged Condition Good, Rehab Referral Accepted Patient has Accepted a Rehab Referral to: [facility] - Medication Discharge Medications: Ambulatory Orders Aspirin [ASA -] 81 mg PO DAILY 07/02/12 Carvedilol [Coreg] 12.5 mg PO BID 07/02/12 Atorvastatin Ca [Lipitor] 40 mg PO HS #30 tablet 06/09/19 Carvedilol [Coreg -] 12.5 mg PO BID #60 tablet 06/09/19 Naloxone HCl [Narcan] 4 mg NS ASDIR PRN #1 spray 06/09/19 Sacubitril/Valsartan [Entresto 49 mg-51 mg Tablet] 1 tablet PO BID #60 tablet - Diagnosis (1) History of acute myocardial infarction Status: Resolved (2) Hypercholesteremia Status: Chronic (3) Hypertension Status: Chronic Qualifiers: Hypertension type: essential hypertension Qualified Code(s): I10 - Essential (primary) hypertension (4) Opioid dependence, uncomplicated Status: Acute (5) Hepatitis C Status: Suspected Qualifiers: Viral hepatitis chronicity: chronic Hepatic coma status: without hepatic coma Qualified Code(s): B18.2 - Chronic viral hepatitis C - AMA Did Patient Leave Against Medical Advice: No
== END 2019-06-10 08:55 | disposition home or self-care (01) | DRG 897 ==
LOC: YASAS 16:46 → Y3N 20:19
PROVIDERS: ADMIT Surgery; ATTEND Surgery
PROC: HZ2ZZZZ Detoxification Services for Substance Abuse Treatment (ICD-10-PCS; principal; 2019-06-05)
DX: F10.230 Alcohol dependence with withdrawal, uncomplicated (principal); Z95.811 Presence of heart assist device; F11.23 Opioid dependence with withdrawal; I25.10 Atherosclerotic heart disease of native coronary artery without angina pectoris; I10 Essential (primary) hypertension; Z95.5 Presence of coronary angioplasty implant and graft; I25.2 Old myocardial infarction; I48.91 Unspecified atrial fibrillation; E78.00 Pure hypercholesterolemia, unspecified; M25.561 Pain in right knee; Z86.19 Personal history of other infectious and parasitic diseases; Z99.89 Dependence on other enabling machines and devices
CPT/HCPCS: 36415; 73560-TC-RT-FY; 80053; 85027; 86593; 93005; 93010

== ENCOUNTER 2019-06-10 12:55 | Emergency (ER) | payer OTHER ==
[2019-06-10 13:18] VITALS: BP 135/84; PULSE 64; TEMP 98.6; BMI 25.0
--- NOTE | 2019-06-10 15:37 | PDOC ---
History of Present Illness - General Chief Complaint: Pain, Acute Stated Complaint: RT KNEE SWOLLEN Time Seen by Provider: 06/10/19 13:55 - History of Present Illness Initial Comments: 06/10/19 14:32 CHIEF COMPLAINT: knee swelling HISTORY OF PRESENT ILLNESS: 68 yo M with significant PMH of ME, hepatitis C, hypertension, cardiac stents presents to fast track with swelling to R knee. 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 He states he was at rehab yesterday and had an extra taken that was negative for any fracture or dislocation. He states that the swelling started a few days ago but has worsened and now his right lower leg also feels swollen. Denies any fever, chills, vomiting, diarrhea. No recent travel or sick contacts. PAST MEDICAL HISTORY: Denies past medical history FAMILY HISTORY: Denies SOCIAL HISTORY:Denies tobacco, alcohol, illicit drug use. SURGICAL HISTORY: Denies ALLERGIES: No known drug allergies REVIEW OF SYSTEMS General/Constitutional: Denies fever or chills. Denies weakness, weight change. HEENT: Denies change in vision. Denies ear pain or discharge. Denies sore throat. Cardiovascular: Denies chest pain or shortness of breath. Respiratory: Denies cough, wheezing, or hemoptysis. Gastrointestinal: Denies nausea, vomiting, diarrhea or constipation. Denies rectal bleeding. Genitourinary: Denies dysuria, frequency, or change in urination. Musculoskeletal: Right knee swelling. Skin and breasts: Denies rash or easy bruising. Neurologic: Denies headache, vertigo, loss of consciousness, or loss of sensation. PHYSICAL EXAM General Appearance: Well-appearing, appropriately dressed. No apparent distress , no intoxication. HEENT: EOMI, PERRLA, normal ENT inspection, normal voice, TMs normal, pharynx normal. No conjunctival pallor. No photophobia, scleral icterus. Neck: Supple. Trachea midline. No tenderness, rigidity, carotid bruit, stridor , lymphadenopathy, or thyromegaly. Respiratory/Chest: Lungs CTAB. No shortness of breath, chest tenderness, respiratory distress, accessory muscle use. No crackles, rales, rhonchi, stridor , wheezing, dullness Cardiovascular: RRR. S1, S2. No JVD, murmur, bradycardia, tachycardia. Vascular Pulses: Dorsalis-Pedis (R): 2+, Dorsalis-Pedis (L): 2+ Gastrointestinal/Abdominal: Normal bowel sounds. Abdomen soft, non-distended. No tenderness or rebound tenderness. No organomegaly, pulsatile mass, guarding , hernia, hepatomegaly, splenomegaly. Lymphatic: No adenopathy, tenderness. Musculoskeletal/Extremities: Erythema, warmth, swelling to anterior R knee. Normal inspection. FROM of all extremities, normal capillary refill. Pelvis Stable. No CVA tenderness. No tenderness to extremities, pedal edema, swelling , erythema or deformity. Integumentary: Appropriate color, dry, warm. No cyanosis, erythema, jaundice or rash Neurologic: bowl attendant II-XII intact. Fully oriented, alert. Appropriate mood/affect. Motor strength 5/5. No appreciable EOM palsy, facial droop or sensory deficit. 06/10/19 15:37 Past History - Past Medical History Allergies/Adverse Reactions: Allergies Allergy/AdvReac Type Severity Reaction Status Date / Time No Known Allergies Allergy Verified 06/10/19 13:16 Home Medications: Ambulatory Orders Aspirin [ASA -] 81 mg PO DAILY 07/02/12 Carvedilol [Coreg] 12.5 mg PO BID 07/02/12 Atorvastatin Ca [Lipitor] 40 mg PO HS #30 tablet 06/09/19 Carvedilol [Coreg -] 12.5 mg PO BID #60 tablet 06/09/19 Naloxone HCl [Narcan] 4 mg NS ASDIR PRN #1 spray 06/09/19 Sacubitril/Valsartan [Entresto 49 mg-51 mg Tablet] 1 tablet PO BID #60 tablet Sulfamethoxazole/Trimethoprim [Bactrim Ds -] 1 tab PO BID #14 tablet 06/10/19 Anemia: No Asthma: No Cancer: No Cardiac Disorders: Yes (8 WEEKS AGO ME; cardiac stents) CVA: No COPD: No CHF: No Dementia: No Diabetes: No GI Disorders: Yes (hiatal hernia) Disorders: No HTN: Yes Hypercholesterolemia: Yes Kidney Stones: No Liver Disease: Yes (HEPATITIS C (TREATED)) Seizures: No Thyroid Disease: No - Surgical History Cardiac Surgery: Yes (STENTS, EXTERNAL DEFIB) Orthopedic Surgery: Yes (ROTATOR CUFF ) - Reproductive History Testicular Surgery: No - Immunization History Immunization Up to Date: Yes - Suicide/Smoking/Psychosocial Hx Smoking Status: No Smoking History: Never smoked Have you smoked in the past 12 months: No Number of Cigarettes Smoked Daily: 0 If you are a former smoker, when did you quit?: 9 YEARS AGO 'Breaking Loose' booklet given: 06/05/19 Hx Alcohol Use: No Drug/Substance Use Hx: No Substance Use Type: Alcohol, Heroin Hx Substance Use Treatment: Yes (DETOX 50 YEARS AGO FOR HEROIN DEPENDENCE) *Physical Exam - Vital Signs Last Vital Signs Temp Pulse Resp BP Pulse Ox 98.6 F 64 18 135/84 100 06/10/19 13:17 06/10/19 13:17 06/10/19 13:17 06/10/19 13:17 06/10/19 13:17 ED Treatment Course - RADIOLOGY Radiology Studies Ordered: Category Date Time Status DUPLEX VASCUL US-1 LEG [US] Stat Ultrasound 06/10/19 14:28 Ordered Medical Decision Making - Medical Decision Making 06/10/19 15:43 68 yo M with significant PMH of ME, hepatitis C, hypertension, cardiac stents presents to fast track with swelling to R knee. -US R knee r/o dvt 06/10/19 16:42 US negative Likely cellulitis of R knee. Bactrim given. Area of erythema circumscribed, return precautions given. *DC/Admit/Observation/Transfer Diagnosis at time of Disposition: Cellulitis of right knee - Discharge Dispostion Disposition: HOME Condition at time of disposition: Stable Decision to Admit order: No - Prescriptions Prescriptions: Sulfamethoxazole/Trimethoprim [Bactrim Ds -] 1 tab PO BID #14 tablet - Referrals - Patient Instructions Printed Discharge Instructions: DI for Cellulitis -- Adult - Post Discharge Activity
[2019-06-10] MEDS ORDERED: SULFAMETHOXAZOLE/TRIMETHOPRIM 800MG/160MG D.S. TABLET PO ONE (15:45)
[2019-06-10] MEDS ORDERED: SULFAMETHOXAZOLE/TRIMETHOPRIM 800MG/160MG D.S. TABLET ONE (15:47)
== END 2019-06-10 15:51 | disposition home or self-care (01) ==
LOC: JERFT 12:55
DX: L03.115 Cellulitis of right lower limb (principal); I25.10 Atherosclerotic heart disease of native coronary artery without angina pectoris; I10 Essential (primary) hypertension; Z95.5 Presence of coronary angioplasty implant and graft; I25.2 Old myocardial infarction; B18.2 Chronic viral hepatitis C; Z95.811 Presence of heart assist device
CPT/HCPCS: 93971-TC; 99282-25

== ENCOUNTER 2022-04-03 11:13 | Emergency (ER) | payer OTHER ==
[2022-04-03 11:30] VITALS: BP 132/77; PULSE 77; TEMP 97.8; BMI 25.8
== END 2022-04-03 14:36 | disposition home or self-care (01) ==
LOC: JER 11:13
DX: T82.198A Other mechanical complication of other cardiac electronic device, initial encounter (principal)
CPT/HCPCS: 93005; 93010; 99283-25